=== PATIENT | male | born 1970 | race Caucasian/White ===

== ENCOUNTER 2017-03-17 07:52 | Emergency (ER) | payer OTHER ==
[~2017-03-17] VITALS: Ht 188 cm; Wt 90.4 kg
[2017-03-17 07:54] VITALS: BP 148/86
[2017-03-17] MEDS ORDERED: LIDOCAINE 1%, 20ML ONE (08:23)
[2017-03-17] MEDS ORDERED: DIPH,PERTUSS(ACELL),TET VAC/PF 0.5 ML IM-VACC ONE ×2 (08:23→08:30)
[2017-03-17] MEDS ORDERED: LIDOCAINE 1%, 20ML SQ ONE (08:30)
[2017-03-17] MEDS ORDERED: CEFAZOLIN 1,000 MG IM ONE (09:00)
[2017-03-17] MEDS ORDERED: BACITRACIN ZINC OINT 500U/GM, 0.9 GM ONE (09:30)
== END 2017-03-17 10:09 | disposition home or self-care (01) ==
LOC: ED 09:50
DX: S62.522B Displaced fracture of distal phalanx of left thumb, initial encounter for open fracture (principal); W45.8XXA Other foreign body or object entering through skin, initial encounter; Y93.89 Activity, other specified; Y92.89 Other specified places as the place of occurrence of the external cause; Y99.9 Unspecified external cause status
CPT/HCPCS: 29130; 73140; 90471; 90715; 96372; 99284; J0690; 13132

== ENCOUNTER 2018-02-15 19:55 | Emergency (ER) | payer OTHER ==
[~2018-02-15] VITALS: Ht 182.9 cm; Wt 93.3 kg
[2018-02-15 20:02] VITALS: BP 148/90
[2018-02-15] MEDS ORDERED: VENL75CA6 PO (20:28)
[2018-02-15] MEDS ORDERED: LIDOCAINE-MPF 2% ,5ML ONE ×2 (20:47→21:09)
[2018-02-15] MEDS ORDERED: LIDOCAINE 2%, 10ML INFIL ONE (21:00)
[2018-02-15] MEDS ORDERED: MICROFIBRILLAR COLLAGEN 1 GM TP ONE ×2 (21:30→21:38)
[2018-02-15] MEDS ORDERED: HYDROcodone/APAP 5/325 TABLET PO ONE (21:30)
[2018-02-15] MEDS ORDERED: HYDROcodone/APAP 5/325 TABLET ONE (21:38)
== END 2018-02-15 22:20 | disposition home or self-care (01) ==
LOC: ED 21:55
DX: S61.210A Laceration without foreign body of right index finger without damage to nail, initial encounter (principal); F32.9 Major depressive disorder, single episode, unspecified; W27.8XXA Contact with other nonpowered hand tool, initial encounter; Y93.89 Activity, other specified; Y99.8 Other external cause status; Y92.009 Unspecified place in unspecified non-institutional (private) residence as the place of occurrence of the external cause
CPT/HCPCS: 12031; 12041; 99284

== ENCOUNTER → 2019-02-17 | Outpatient (CLI) | payer OTHER ==
[~2019-02-17] MED LIST: VENL75CA6 PO
== END | disposition home or self-care (01) ==
LOC: CFH 14:32
PROVIDERS: ATTEND Physician Assistant Surgical
DX: S83.251A Bucket-handle tear of lateral meniscus, current injury, right knee, initial encounter (principal); X58.XXXA Exposure to other specified factors, initial encounter; Y93.9 Activity, unspecified; Y92.89 Other specified places as the place of occurrence of the external cause; Y99.8 Other external cause status; M25.461 Effusion, right knee

== ENCOUNTER 2021-05-27 19:23 | Emergency (ER) | payer OTHER ==
[~2021-05-27] VITALS: Ht 188 cm; Wt 87.6 kg
[2021-05-27 19:30] VITALS: BP 136/93
--- NOTE | 2021-05-27 19:57 | NUR ---
pt called to room from lobby -
[2021-05-27] MEDS ORDERED: DIPH,PERTUSS(ACELL),TET VAC/PF 0.5 ML IM-VACC ONE ×2 (20:00→20:03)
[2021-05-27] MEDS ORDERED: LIDOCAINE-MPF 1%, 5ML INFIL ONE (20:00)
[2021-05-27] MEDS ORDERED: LIDOCAINE-MPF 1%, 5ML ONE (20:02)
--- NOTE | 2021-05-27 22:03 | NUR ---
med student to bs for sutures
--- NOTE | 2021-05-27 22:35 | NUR ---
pt dc and paper work given, student dressed wound, instructed on wound care. return to er or pcp 7-10 days for suture removal.
== END 2021-05-27 22:38 | disposition home or self-care (01) ==
LOC: ED 20:46
DX: S61.211A Laceration without foreign body of left index finger without damage to nail, initial encounter (principal); W26.0XXA Contact with knife, initial encounter; Y93.89 Activity, other specified; Y92.89 Other specified places as the place of occurrence of the external cause; Y99.8 Other external cause status
CPT/HCPCS: 12001; 90471; 90715; 99283